=== PATIENT | female | born 1980 | race Caucasian/White ===

== ENCOUNTER 2021-02-14 21:35 | Emergency (ER) | payer OTHER ==
--- NOTE | 2021-02-14 22:05 | ERPHSYRPT ---
- History of Present Illness Source: patient Exam Limitations: no limitations Patient Subjective Stated Complaint: pt states "I was taking the lid off the water pump and a snake jumped out and I fell on my wrist." Triage Nursing Assessment: pt ambulated into the er; pt is axo x4; c/o left wrist injury; pt states 7/10 pain to left wrist; pt states that she has had 2 surgerys on her left wrist; pt states that she fell on her wrist with all her weight on it; no swelling present to left wrist; no bruising present to left wrist; small abrasion to left palm; good cap refill to left hand; strong left radial pulse; limited ROM to left wrist; hypertensive Physician History: 40 yo wf fell while running away from snake found in water meter injuring L wrist. She is R handed and denies other injuries, including CABRAL/C,T,or L-spine pain. Previous carpal tunnel surgery L wrist x2. Occurred: just prior to arrival Method of Injury: fell Quality: constant Severity of Pain-Max: moderate Severity of Pain-Current: moderate Extremities Pain Location: wrist: left Modifying Factors: Improves With: movement Associated Symptoms: none Allergies/Adverse Reactions: No Known Drug Allergies Allergy (Unverified 02/14/21 21:41) Hx Tetanus, Diphtheria Vaccination/Date Given: Yes Hx Influenza Vaccination/Date Given: No Hx Pneumococcal Vaccination/Date Given: No Travel Risk - International Travel Have you traveled outside of the country in past 3 weeks: No - Coronavirus Screening Are you exhibiting any of the following symptoms?: No Close contact with a COVID-19 positive Pt in past 14-21 Days: No - Vaccine Status Have you recieved a Covid-19 vaccination: No - Review of Systems Constitutional: No Symptoms Eyes: No Symptoms Ears, Nose, & Throat: No Symptoms Respiratory: No Symptoms Cardiac: No Symptoms Abdominal/Gastrointestinal: No Symptoms Genitourinary Symptoms: No Symptoms Skin: No Symptoms Neurological: No Symptoms Psychological: No Symptoms Endocrine: No Symptoms Hematologic/Lymphatic: No Symptoms Immunological/Allergic: No Symptoms - Past Medical History Pertinent Past Medical History: Yes - Past Surgical History Past Surgical History: Yes Gastrointestinal: Cholecystectomy Musculoskeletal: Orthopedic Surgery Female Surgical History: Hysterectomy, Section Other Surgical History: carpel tunnel surgery 2 on left and 1 on rt, 2 c- sections and partial hysetectomy - Social History Smoking Status: Never smoker Exposure to second hand smoke: No Drug Use: none Patient Lives Alone: No Significant Family History: no pertinent family hx - Female History Hx Now: No - Nursing Vital Signs Nursing Vital Signs: Initial Vital Signs Temperature 97.7 F 02/14/21 21:42 Pulse Rate 76 02/14/21 21:42 Respiratory Rate 18 02/14/21 21:42 Blood Pressure 149/86 02/14/21 21:42 O2 Sat by Pulse Oximetry 99 02/14/21 21:42 Pain Scale Pain Intensity 5 Hpertensive - Physical Exam General Appearance: no apparent distress Eyes, Ears, Nose, Throat Exam: normal ENT inspection, TMs normal, pharynx normal, moist mucous membranes Neck Exam: normal inspection (C-spine nttp) Cardiovascular/Respiratory Exam: normal breath sounds, regular rate/rhythm, heart sounds normal Abdominal Exam: non-tender, soft Back Exam: normal inspection (No T-Lspine ttp) Shoulder Exam: normal inspection Elbow/Forearm Exam: normal inspection Wrist Exam: bone tenderness (L distal radius ttp/no edema/Good radial pulse, distal sensation, and capillary return) Hand Exam: normal inspection Neuro/Tendon Exam: normal sensation, normal motor functions, normal tendon functions, responds to pain Mental Status Exam: alert, oriented x 3, cooperative Skin Exam: normal color, warm, dry, No rash SpO2 Interpretation: normal SpO2: 99 O2 Delivery: Room Air - Course Nursing assessment & vital signs reviewed: Yes - Radiology Exams Wrist X-ray Interpretation: Interpreted by me (L wrist neg per ER read) Ordered Tests: Active Orders 24 hr Category Date Time Status [place] Bandage Application -[facility] STAT Care 02/14/21 22:11 Completed WRIST (MIN 3 VIEWS) Stat Exams 02/14/21 21:59 Taken Medication Summary Discontinued Medications Generic Name Dose Route Start Last Admin Trade Name Yonathan PRN Reason Stop Dose Admin Ketorolac Tromethamine 60 mg 02/14/21 22:11 02/14/21 22:13 Toradol 30 Mg Injection IM 02/14/21 22:12 60 mg STAT ONE Administration Ketorolac Tromethamine Confirm 02/14/21 22:11 Toradol 30 Mg Injection Administered 02/14/21 22:12 Dose 60 mg .ROUTE .[facility] - Progress Progress: improved Progress Note: 02/14/21 22:12 60mg IM Toradol [place] wrap L wrist per nursing/NVI Counseled pt/family regarding: need for follow-up, rad results - Departure Departure Disposition: Home Clinical Impression: Left wrist sprain Condition: Stable Critical Care Time: No Referrals: DOCTOR,NO FAMILY [Primary Care Provider] - Instructions: Common Wrist Injuries (DC) Additional Instructions: Ice wrist for 12-24 hours Toradol as needed for pain Monroe wrap for 3-4 days Follow up with your family MD for continued pain Prescriptions: Ketorolac Trometh 60 mg/2Ml [Toradol 60 mg/2 ml] 60 mg IM TID PRN #10 tab PRN Reason: Pain
[2021-02-14] MEDS ORDERED: TORAdol 30 mg Injection ONE (22:11)
[2021-02-14] MEDS ORDERED: TORAdol 30 mg Injection IM ONE (22:11)
[2021-02-14 22:19] VITALS: PULSE 62
[2021-02-14 22:20] VITALS: BP 125/84
[2021-02-15 01:28] VITALS: O2SAT 99
--- NOTE | 2021-02-15 07:52 | XRAY ---
Indication: Pain following fall. Comparison: None 3 view left wrist obtained. No bony, articular, or soft tissue abnormalities.
== END 2021-02-14 22:22 | disposition home or self-care (01) ==
LOC: ED 21:35
DX: S63.502A Unspecified sprain of left wrist, initial encounter (principal); W18.39XA Other fall on same level, initial encounter; Y93.89 Activity, other specified; Y92.89 Other specified places as the place of occurrence of the external cause
CPT/HCPCS: 73110; 96372; 99284; J1885